=== PATIENT | female | born 1935 | race American Indian/Alaskan Native ===

== ENCOUNTER 2019-03-11 14:24 | Emergency (ER) | payer MEDICARE ==
[2019-03-11 14:56] VITALS: BP 141/75
--- NOTE | 2019-03-11 16:05 | Emergency Department Report ---
ED Altered Mental Status HPI - General Chief Complaint: Altered Mental Status Stated Complaint: AMS Time Seen by Provider: 03/11/19 15:55 Source: EMS Mode of arrival: Stretcher Limitations: Altered Mental Status - History of Present Illness Initial Comments: Mrs. Gee Egan is an 83-year-old female with past medical history significant for type 2 diabetes Alzheimer's dementia, schizoaffective disorder, depression and hypertension who was sent to the emergency Department from [facility] for altered mental status. She is awake and alert. She denies pain. History is limited due to patient's advanced dementia. According to documentation from long term [facility], patient is DO NOT RESUSCITATE status. According to documentation she was recently admitted for hyperosmolar nonketotic state, severe hypernatremia, JOSE ANTONIO, encephalopathy, sepsis. I have reviewed medications for possible sedating drugs. Sedating agents include tra zodone, tramadol, Benadryl, perphenazine. MD Complaint: altered mental status -: Gradual, days(s) (1) Severity: mild Consistency of Symptoms: waxing and waning Context: history of similar presen - Related Data Allergies Allergy/AdvReac Type Severity Reaction Status Date / Time aspirin Allergy Unknown Verified 09/05/14 16:38 Penicillins Allergy Unknown Verified 09/05/14 16:38 ED Review of Systems ROS: Stated complaint: AMS Other details as noted in HPI Comment: Unobtainable due to pts medical conditions (advanced dementia) ED Past Medical Hx - Past Medical History Previous Medical History?: Yes Hx Hypertension: Yes Hx Psychiatric Treatment: Yes (schizophrenia, depression) - Social History Smoking Status: Unknown if ever smoked ED Physical Exam - General Limitations: Altered Mental Status General appearance: alert, in no apparent distress, lethargic - Head Head exam: Present: atraumatic, normocephalic - Eye Eye exam: Present: normal appearance, PERRL. Absent: scleral icterus, conjunctival injection - ENT ENT exam: Present: mucous membranes moist - Neck Neck exam: Present: normal inspection, full ROM. Absent: meningismus - Respiratory Respiratory exam: Present: normal lung sounds bilaterally. Absent: respiratory distress, wheezes, rales, rhonchi - Cardiovascular Cardiovascular Exam: Present: regular rate, normal rhythm, normal heart sounds. Absent: rubs, gallop - GI/Abdominal GI/Abdominal exam: Present: soft, normal bowel sounds. Absent: distended, tenderness, guarding, rebound - Extremities Exam Extremities exam: Present: other (no deformities but cachectic) - Neurological Exam Neurological exam: Present: alert, other (arousable and oriented to name) - Psychiatric Psychiatric exam: Present: flat affect - Skin Skin exam: Present: warm, dry, intact, normal color. Absent: rash ED Course Vital Signs 03/11/19 14:53 Temperature 97.9 F Pulse Rate 68 Respiratory 20 Rate Blood Pressure 141/75 - Lab Data Result diagrams: 03/11/19 15:57 03/11/19 15:57 Lab Results 03/11/19 03/11/19 03/11/19 Range/Units 15:57 15:57 Unknown WBC 7.0 (4.5-11.0) K/mm3 RBC 4.35 (3.65-5.03) M/mm3 Hgb 13.7 (10.1-14.3) gm/dl Hct 42.3 (30.3-42.9) % MCV 97 (79-97) fl MCH 31 (28-32) pg MCHC 32 (30-34) % RDW 14.0 (13.2-15.2) % Plt Count 202 (140-440) K/mm3 Lymph % (Auto) 20.8 (13.4-35.0) % [place] % (Auto) 14.3 H (0.0-7.3) % Eos % (Auto) 11.3 H (0.0-4.3) % Baso % (Auto) 0.5 (0.0-1.8) % Lymph # 1.5 (1.2-5.4) K/mm3 [place] # 1.0 H (0.0-0.8) K/mm3 Eos # 0.8 H (0.0-0.4) K/mm3 Baso # 0.0 (0.0-0.1) K/mm3 Seg Neutrophils % 53.1 (40.0-70.0) % Seg Neutrophils # 3.7 (1.8-7.7) K/mm3 Sodium 138 (137-145) mmol/L Potassium 5.2 H (3.6-5.0) mmol/L Chloride 99.5 (98-107) mmol/L Carbon Dioxide 23 (22-30) mmol/L Anion Gap 21 mmol/L BUN 14 (7-17) mg/dL Creatinine 1.2 (0.7-1.2) mg/dL Estimated GFR 52 ml/min BUN/Creatinine Ratio 12 % Glucose 218 H (65-100) mg/dL Calcium 10.1 (8.4-10.2) mg/dL Troponin T 0.018 (0.00-0.029) ng/mL Urine Color Kaylie (Yellow) Urine Turbidity Cloudy (Clear) Urine pH 5.0 (5.0-7.0) Ur Specific [place] 1.026 (1.003-1.030) Urine Protein 30 mg/dl (Negative) mg/dL Urine Glucose (UA) >=500 (Negative) mg/dL Urine Ketones Tr (Negative) mg/dL Urine Blood Neg (Negative) Urine Nitrite Neg (Negative) Urine Bilirubin Neg (Negative) Urine Urobilinogen < 2.0 (<2.0) mg/dL Ur Leukocyte Esterase Tr (Negative) Urine WBC (Auto) 3.0 (0.0-6.0) /HPF Urine RBC (Auto) 5.0 (0.0-6.0) /HPF U Epithel Cells (Auto) 9.0 (0-13.0) /HPF Hyaline Casts 10 /LPF Urine Mucus 1+ /HPF Urine Yeast (Budding) 2+ /HPF - Medical Decision Making Mrs. Egan is an 83-year-old female with history of advanced dementia depression and schizoaffective disorder. She presents from long term facility with reports of altered mental status. At this time she is alert and arousable. CBC chemistry within normal limits. Slightly elevated potassium likely due to a hemolyzed sample. Repeat potassium is not indicated considering normal kidney function. AP portable chest and CT head diagnostics were without acute process. Urinalysis without signs of infection. She is medical clear without any acute medical condition at this time. I suspect sedation polypharmacy as the cause of transient delirium. She is discharged back to long term facility. Critical care attestation.: If time is entered above; I have spent that time in minutes in the direct care of this critically ill patient, excluding procedure time. ED Disposition Clinical Impression: Acute delirium, Polypharmacy Disposition: TO HOME OR SELFCARE Is pt being admited?: No Does the pt Need Aspirin: No Condition: Stable Additional Instructions: Diagnostics obtained were within normal limits including: CBC, BMP, UA, chest radiograph, CT head
[2019-03-11 16:17] LABS: Basophils % (Auto) 0.5 % (0.0-1.8); Eosinophils # (Auto) 0.8 K/mm3 (0.0-0.4); Eosinophils % (Auto) 11.3 % (0.0-4.3); Hematocrit 42.3 % (30.3-42.9); Hemoglobin 13.7 gm/dl (10.1-14.3); Lymphocytes # (Auto) 1.5 K/mm3 (1.2-5.4); Lymphocytes % (Auto) 20.8 % (13.4-35.0); Mean Corpuscular HGB Conc 32 % (30-34); Mean Corpuscular Volume 97 fl (79-97); Monocytes % (Auto) 14.3 % (0.0-7.3); Platelet Count 202 K/mm3 (140-440); Red Blood Count 4.35 M/mm3 (3.65-5.03)
[2019-03-11 16:21] LABS: Bilirubin,Urine NEG (Negative); Blood,Urine NEG (Negative); Color,Urine Amber (Yellow); Hyaline Casts,Urine 10 /LPF; Mucus,Urine 1+ /HPF; Urobilinogen,Urine < 2.0 mg/dL (<2.0)
[2019-03-11 16:49] LABS: Calcium 10.1 mg/dL (8.4-10.2)
--- NOTE | 2019-03-11 16:54 | XRay Report ---
CHEST 1 VIEW INDICATION / CLINICAL INFORMATION: MAIN: AMS/WEAKNESS. COMPARISON: 09/05/2014 FINDINGS: SUPPORT DEVICES: None. HEART / MEDIASTINUM: No significant abnormality. LUNGS / PLEURA: No significant pulmonary or pleural abnormality. No pneumothorax. ADDITIONAL FINDINGS: No significant additional findings. IMPRESSION: No acute pulmonary or pleural abnormality. No change from the prior examination dated 09/05/2014 Signer Name: Douglas Hill MD FACR Signed: 03/11/2019 4:50 PM Workstation Name: [id number]
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
== END 2019-03-11 18:52 | disposition home or self-care (01) ==
LOC: ED 14:24
DX: R41.0 Disorientation, unspecified (principal); I10 Essential (primary) hypertension; F20.9 Schizophrenia, unspecified; F32.9 Major depressive disorder, single episode, unspecified; Z88.6 Allergy status to analgesic agent; Z88.0 Allergy status to penicillin
CPT/HCPCS: 36415; 70450; 71045; 80048; 81001; 84484; 85025